=== PATIENT | male | born 1950 | race Caucasian/White ===

== ENCOUNTER 2025-08-14 06:17 | Day surgery (SDC) | payer MEDICARE, OTHER, SELFPAY ==
[2025-08-14] VITALS (13 sets, daily range): BP systolic 115–146; BP diastolic 67–85; BMI 35.4
[2025-08-14] MEDS: CELEBREX 200 MG PO (09:02)
[2025-08-14] MEDS: TYLENOL 1000 MG PO (09:02)
[2025-08-14] MEDS: NORMOSOL-R/PLASMALYTE-A 1000 IV (09:02)
[2025-08-14] MEDS: DILAUDID 0.5 MG IV (12:22)
--- NOTE | 2025-08-16 13:04 | OR.RPT ---
Operative Report
Operative Report
Operative Report
Patient: David Londono
MRN:�[id number]
Date of Surgery:�08/14/2025
Surgeon:�Colt Priest DPM
Livestock Auctioneer:�Colt Ring DPM
Preoperative Diagnosis:�Left Achilles tendon rupture
Postoperative Diagnosis:�Same
Procedure Performed:�Primary repair of Achilles tendon rupture CPT 43977
Anesthesia:�General
Hemostasis: Thigh tourniquet at 300mmHg for the duration of the procedure
Estimated Blood Loss:�Minimal
Materials:�#2 Fiberwire, 2x [employer] Speedbridge anchors
Complications:�None
Indications:
The patient is a 75-year-old male with an acute rupture of the Achilles tendon sustained approximately 1 week prior. Examination demonstrated a palpable gap, positive Cano test, and inability to plantarflex. Imaging confirmed a rupture in the
watershed area with a 2 cm defect. Due to the patient�s functional requirements, operative repair was indicated. The risks, benefits, and alternatives were discussed in detail, and informed consent was obtained.
Procedure in Detail:
The patient was placed prone on the operative table, with all bony prominences well-padded. After induction of general anesthesia the left lower extremity was prepped and draped in standard sterile fashion. A thigh tourniquet was applied and
inflated.
A transverse �incision approximately 4�5 cm in length was made centered over the rupture site. Careful dissection was carried through the subcutaneous tissues, protecting the sural nerve. The paratenon was incised and flaps were elevated to expose
the tendon rupture.
A complete rupture in the watershed zone was identified with an approximate 2 cm gap. The tendon edges were lightly debrided back to healthy tissue. The [employer] PARS jig was then placed through the incision, and the proximal tendon stump was
captured with multiple #2 FiberWire sutures passed percutaneously through the jig according to the PARS technique. This created a secure locked suture construct within the proximal tendon.
Attention was then turned distally. Two small stab incisions were made at the posterior calcaneal tuberosity. The SpeedBridge anchors were prepared and drilled into the calcaneus at the anatomical insertion of the Achilles tendon. Sutures from the
proximal tendon were then tensioned distally and secured into the anchors, restoring tendon continuity and apposition to the calcaneus. The final construct provided a strong, anatomic repair with excellent tension and no gapping noted through ankle
range of motion testing. Cano test was negative
The paratenon was reapproximated with 2-0 vicryl suture. The subcutaneous tissues were closed with interrupted 3-0 Vicryl, and the skin was closed with 3-0 prolene sutures. A sterile dressing was applied, and the extremity was immobilized in a
well-padded posterior splint in approximately 20 degrees of plantarflexion.
The patient tolerated the procedure well and was transported to recovery in stable condition. He will be strictly non-weightbearing. He will follow up in the office in 2 weeks for an incision check.
== END 2025-08-14 14:55 | disposition home or self-care (01) ==
LOC: SDS 06:17
PROVIDERS: ATTENDING PHYSICIAN Student in an Organized Health Care Education/Training Program; FAMILY PHYSICIAN Internal Medicine
DX: S86.012A Strain of left Achilles tendon, initial encounter (principal); M76.62 Achilles tendinitis, left leg; M25.572 Pain in left ankle and joints of left foot; X50.1XXA Overexertion from prolonged static or awkward postures, initial encounter
CPT/HCPCS: 27650; 97162; C1776